=== PATIENT | female | born 1965 | race Caucasian/White ===

== ENCOUNTER 2018-11-04 09:13 | Emergency (ER) | payer MEDICAID, OTHER ==
[~2018-11-04] VITALS: Ht 162.6 cm; Wt 131.8 kg
[2018-11-04 09:23] VITALS: BP 158/92
[2018-11-04] MEDS ORDERED: HYDROcodone/acetaminophen 10/325mg tab PO ONE (10:15)
[2018-11-04] MEDS ORDERED: HYDR-4353 PO (10:26)
== END 2018-11-04 11:14 | disposition home or self-care (01) ==
LOC: ER 09:13
DX: S89.91XA Unspecified injury of right lower leg, initial encounter (principal); E78.00 Pure hypercholesterolemia, unspecified; I10 Essential (primary) hypertension; Z88.1 Allergy status to other antibiotic agents; Z88.8 Allergy status to other drugs, medicaments and biological substances; Z79.899 Other long term (current) drug therapy; X50.1XXA Overexertion from prolonged static or awkward postures, initial encounter; Y93.89 Activity, other specified; Y92.89 Other specified places as the place of occurrence of the external cause; Y99.8 Other external cause status
CPT/HCPCS: 29505; 73564; 99283

== ENCOUNTER 2023-04-03 11:03 | Day surgery (SDC) | payer BC, OTHER ==
[~2023-04-03] VITALS: Ht 162.6 cm; Wt 106.3 kg
[2023-04-03] VITALS (11 sets, daily range): BP systolic 108–137; BP diastolic 67–86; PULSE 69–93; RESP 10–18; TEMP 96.6; O2SAT 90–99
[~2023-04-03 11:03] MED LIST: ALLO300T8 PO; CYAN250010 PO; ERGO500093; HYDR25TA5 PO; LEVO100T PO; OXYB5TAB16 PO; POTA10CA85 PO; ROSU20TA73 PO; cefazolin 2gm/D5W 100mL 100 ML IV ONE; famotidine 20mg tablet PO ONE; ringers solution, lacted 1,000 ML IV SCH; vancomycin 1,500 MG in NS 300ml IV soln IV ONE
--- NOTE | 2023-04-03 11:18 | NUR ---
LAB CALLED WITH A CRITICAL VALUE FOR THIS PATIENT AT 1115. DR DEL CID WAS READY EARLY SO SHE WAS AREALDY BACK IN THE OR WHEN THE LABS RESULTED. I CALLED BACK TO THE OR AND LET WESLEY CARVER KNOW THAT THE PATIENT HAD A CRITICAL K+ OF 2.9. AT 1118.
[2023-04-03] MEDS ORDERED: BUPIVAcaine/PF 2.5mg/ml (0.25%) 10ml vial ONE (11:22)
[2023-04-03] MEDS ORDERED: bacitracin 15gm ointment TP ONE (11:22)
[2023-04-03] MEDS ORDERED: desflurane 240ml liquid inh. IH ONE (12:00)
[2023-04-03] MEDS ORDERED: ondansetron/PF 4mg/2ml inj ONE (12:01)
[2023-04-03] MEDS ORDERED: dexamethasone sod phosphate 4mg/ml inj. ONE (12:01)
[2023-04-03] MEDS ORDERED: midazolam 1 mg/ML 2ml injection ONE (12:01)
[2023-04-03] MEDS ORDERED: fentaNYL/PF 50MCG/1 ML 2ML syringe ONE (12:01)
[2023-04-03] MEDS ORDERED: propofol inj 20 ML IV ONE (12:02)
[2023-04-03] MEDS ORDERED: LIDOcaine 2% (20mg/ml) 5ml vial ONE (12:02)
[2023-04-03] MEDS ORDERED: ROPIVAcaine 0.5% (5mg/ml) 30ml vial ONE (12:02)
[2023-04-03 12:09] LABS: EOSINOPHILS # (AUTO) 0.1 X10'3 (0-0.9); MEAN CORPUSCULAR HEMOGLOBIN 28.6 PG (27.0-31.0); MONOCYTES # (AUTO) 0.5 X10'3 (0-0.9)
[2023-04-03 12:10] LABS: BASOPHILS # (AUTO) 0.1 X10'3 (0-0.2); BASOPHILS % (AUTO) 1.1 % (0-1); EOSINOPHILS % (AUTO) 1.2 % (0-6); LYMPHOCYTES # (AUTO) 1.2 X10'3 (1.1-4.8); LYMPHOCYTES % (AUTO) 23.8 % (21-51); MEAN CORPUSCULAR HGB CONC 33.2 g/dL (33.0-36.5); MEAN CORPUSCULAR VOLUME 86.3 FL (78-98); MEAN PLATELET VOLUME 8.3 FL (7.4-10.4); MONOCYTES % (AUTO) 9.5 % (2-12); NEUTROPHILS # (AUTO) 3.2 X10'3 (1.8-7.7); NEUTROPHILS % (AUTO) 64.4 % (42-75); PRE OP HEMATOCRIT 36.3 % (35.0-45.0); PRE OP PLATELET COUNT 235 X10'3 (140-440); PRE OP WHITE BLOOD COUNT 4.9 10'3 (4.8-10.8); RED CELL DISTRIBUTION WIDTH 17.3 % (11.5-14.5)
[2023-04-03 12:14] LABS: PRE OP PROTIME 11.2 SECONDS (9.0-12.0)
[2023-04-03 12:15] LABS: ALBUMIN 3.6 G/DL (3.4-5.0); ALBUMIN/GLOBULIN RATIO 1.1 (1.1-1.5); ALKALINE PHOSPHATASE 71 IU/L (46-116); BLOOD UREA NITROGEN 8 MG/DL (7-18); BUN/CREATININE RATIO 8.5 (10.0-20.0); CALCIUM 9.8 MG/DL (8.5-10.1); CHLORIDE 101 MMOL/L (99-107); CREATININE 0.94 MG/DL (0.40-0.90); PRE OP ALT 50 U/L (30-65); PRE OP ANION GAP 7 (8-16); PRE OP AST 53 U/L (10-37); PRE OP BILIRUB, TOTAL 0.7 MG/DL (0.0-1.0); PRE OP GLUCOSE 113 MG/DL (70-104); PRE OP SODIUM 140 MMOL/L (135-145); TOTAL CARBON DIOXIDE 32.3 MMOL/L (24-32); TOTAL PROTEIN 6.9 G/DL (6.4-8.2); eCRCL 56 ML/MIN; eGFR 61 ML/MIN
[2023-04-03 12:17] LABS: PRE OP POTASSIUM 2.9 MMOL/L (3.4-5.1)
[2023-04-03] MEDS ORDERED: ondansetron/PF 4mg/2ml inj IV PRN (12:45)
[2023-04-03] MEDS ORDERED: ringers solution, lacted 1,000 ML IV SCH (12:45)
[2023-04-03] MEDS ORDERED: fentaNYL/PF 50MCG/1 ML 2ML syringe IV PRN ×2 (12:45)
[2023-04-03] MEDS ORDERED: morphine 4 MG/ML inj SYRINge IV PRN (12:45)
[2023-04-03] MEDS ORDERED: labetalol 20mg/4ml (5mg/ml) syringe IV PRN (12:45)
[2023-04-03] MEDS ORDERED: hydrALAZINE 20mg/ml inj. IV PRN (12:45)
[2023-04-03] MEDS ORDERED: morphine 2 MG/ML inj. syringe IV PRN (12:45)
--- NOTE | 2023-04-03 13:01 | NUR ---
Received from OR via [facility], accompanied by Anesthesiologist DR MORALES and report given by Anesthesiologist. PT IS AWAKE AND FOLLOWING COMMANDS. PT PLACED ON BEDSIDE MONITOR. VSS. PT IS IN SR WITH RATE IN 70'S. PT RECEIVING 8L O2 TO MASK AND TOLERATING WELL WITH 02 SAT >95%, WILL TITRATE DOWN AT PT TOLERATES. PT HAS 20G PIV TO RT HAND WITH LR INFUSING ORDERED. PT HAS DRSG/SPLINT TO RT LE THAT IS CDI. FOOT OF [facility] IS ELEVATED AND ICE PACK IN PLACE. PT DENIES PAIN AT THIS TIME. WILL CONTINUE TO ASSESS
--- NOTE | 2023-04-03 14:24 | NUR ---
PT HAD CRITICAL POTASSIUM LEVEL OF 2.9. DR MORALES NOTIFIED D/T NOT SEEING ANY PREVIOUS ORDERS. DR MORALES NOT CONCERNED. PT STATES THAT SINCE CHEMO SHE HAS HAD ISSUES WITH HYPOKALEMIA AND IS MONITORED WEEKLY. PT ALSO STATES SHE HAS BEEN AROUND THE 2.9 LEVEL PREVIOUSLY. PT STATES SHE HAS RECEIVED POTASSIUM INFUSIONS WELL. ORDER RECEIVED TO GIVE ONE TIME DOSE OF PO REPLACEMENT. PT HAS BEEN INSTRUCTED TO FOLLOW UP WITH PRIMARY DR AND HAS BEEN EDUCATED ON MONITORING FOR PALPITATIONS. PT DOES TAKE 1O MEQ TABS BID AND SURGEON CONTINUED ALL HOME MEDS.
--- NOTE | 2023-04-03 14:30 | NUR ---
PT TAKEN OFF MONITOR TO USE BEDSIDE COMMODE, ECG MONITOR IS STILL IN USE AND LEADS STILL IN PLACE TO PT'S CHEST. PT REMAINS IN NSR.
[2023-04-03] MEDS ORDERED: potassium Cl 20 mEq SR tablet PO STA (14:44)
--- NOTE | 2023-04-03 15:45 | NUR ---
DC HOME: ALL DISCHARGE CRITERIA HAS BEEN MET. VSS, PAIN AT TOLERABLE LEVEL. ABLE TO SAFELY AMBULATE AND TRANSFER SELF. IV TAKEN OUT WITHOUT ANY COMPLICATIONS. ALL DISCHARGE INSTRUCTIONS COVERED WITH PATIENT AND ALL QUESTIONS ANSWERED. PATIENT TAKEN OUT VIA WHEELCHAIR TO PERSONAL VEHICLE WHERE BROTHER LEONELA DROVE PATIENT HOME.
== END 2023-04-03 15:27 | disposition home or self-care (01) ==
LOC: PAS 11:03
PROVIDERS: ATTEND Podiatrist Foot & Ankle Surgery
DX: S92.351A Displaced fracture of fifth metatarsal bone, right foot, initial encounter for closed fracture (principal); E78.00 Pure hypercholesterolemia, unspecified; E03.9 Hypothyroidism, unspecified; I10 Essential (primary) hypertension; X58.XXXA Exposure to other specified factors, initial encounter; Y93.89 Activity, other specified; Y92.89 Other specified places as the place of occurrence of the external cause; Y99.8 Other external cause status; Z79.899 Other long term (current) drug therapy; Z98.890 Other specified postprocedural states; Z79.01 Long term (current) use of anticoagulants; G89.18 Other acute postprocedural pain; M10.9 Gout, unspecified; Z88.8 Allergy status to other drugs, medicaments and biological substances
CPT/HCPCS: 28485; 36415; 64450; 71045; 73630; 80053; 82948; 85025; 85610; 85730; 93005; A6223; C1713; J0690; J1100; J2250; J2270; J2405; J2704; J2795; J3010; J3370; J3490; J7030; J7120; Z7506; Z7512; 76000; A4215; A4618; A6449; A7000